=== PATIENT | female | born 1985 | race Caucasian/White ===

== ENCOUNTER 2024-10-18 06:02 | Inpatient (IN) | payer BC, SELFPAY ==
[2024-10-18] VITALS (23 sets, daily range): BP systolic 112–143; BP diastolic 59–85; PULSE 44–156; RESP 16–18; TEMP 36.6–36.9; O2SAT 82–98; BMI 26.6
--- OUTSIDE RECORDS SUMMARY | 2024-10-18 06:07 | XMS_ITS | Clinical Summary ---
Author Organization [employer] [facility] [employer] [facility] Address [place], [place] [address] Care Team Providers Care Patient Scheduling Manager Name Role Phone Gaston Shipman MD Unavailable Unavailable Tong Rosenthal DO Primary Care Provider [phone] Allergies No known active allergies Medications albuterol HFA (PRO-AIR; VENTOLIN; PROVENTIL) 90 mcg/actuation inhalerIndicatio ns:Cough, unspecified type Inhale 1-2 Puffs by mouth every 4 hours if needed for Shortness Of Breath or Wheezing. 1 Each 2 2 Active fluticasone (50 mcg per actuation) nasal solution (FLONASE)Indicat ions:Dysfunction of right eustachian tube INHALE 2 SPRAYS TO BOTH NOSTRILS ONCE DAILY 48 mL 2 2 Active 21/iron fu/folic acid ( COMPLETE ORAL) Take by mouth. Active valACYclovir (Valtrex) 500 mg tabletIndication s:Genital herpes simplex, unspecified site Take 1 Tablet (500 mg) by mouth once daily. 90 Tablet 3 4 Active Breast Pump PurchaseIndicati ons:Breastfeedin g () Electric breast pump for home use. ALEXANDRA 10/25/24. Reason for need: . Length of need: 99 months (lifetime use) 1 Each 4 Active ferrous sulfate 325 mg delayed release tabletIndication s:Anemia during Take 1 Tablet (325 mg) by mouth once daily with a meal. 90 Tablet 3 4 Active Active Problems Problem Noted Date Diagnosed Date Advanced maternal age in multigravida, third tri mester 09/14/2024 Bilobate placenta, third trimester 08/03/2024 Elderly multigravida in second trimester 024 History of delivery, currently in second trimester 06/01/2024 History of loop electrosurgi ninfa excision procedure (LEEP) of cervix 06/01/2024 Post-viral reactive airway disease 04/12/2024 [facility] Supervision of high-risk 4 Overview (09/08/2024): Tamra Glynn : 1985 MPP ULTRASOUND/TESTING PATIENT MPP CONSULT ON 06/02/24 Support person name: Bill REFERRING PROVIDER/CLINIC LOCATION/FAX #: Tong Rosenthal DO , Primary provider approves scheduling of recommended ultrasounds/testing: Yes ULTRASOUND TYPE: Growth REASON FOR VISIT: AMA (39 at [facility]), history delivery NEXT VISIT ALERTS: Final ALEXANDRA by LMP LMP Date: Patient's last menstrual period was 01/19/2024. ALEXANDRA: 10/25/24 Early US: Date: 03/15/24 GA: 8w3d ALEXANDRA: 10/22/24 PrePregnancy Weight: 140 Height: 66.5 BMI: 22.3 PLANS & FUTURE APPOINTMENTS: ULTRASOUND/GROWTH PLAN: growth is recommended at 28 and 34 weeks - Growth: Next 09/14 TESTING PLAN: @ 32wks - Testing: Through DELIVERY PLAN: 39wks - Scheduled delivery: - Preferred delivery location: [place] PRIMARY DIAGNOSIS: 38 y.o. Estimated Date of Delivery: 10/25/24 : posterior succenturiate lobe. MATERNAL: 2017 35w5d 2015 Term ELMER (39 at del) 2011 LEEP HSV2 PREVIOUS ULTRASOUNDS: 09/14/24 34w1d 08/03/24 28w1d EFW 1365 grams, percentile: 75 06/02/24 19w2d EFW 315 grams, percentile: 71. ECHO: SPECIALISTS/CONSULTS: Include: Specialty MD Clinic Name Phone# [place] and ADDED TO PATIENT CARE TEAM No GENETICS: NIPT: low risk CARE COORDINATION: PERTINENT LABS: Blood type: B Rh Positive Antibody screen: Negative PERTINENT MEDS: Valtrex PROCEDURES: PLAN OF CARE: 08/03/24 per ML -Return to primary OB provider for continued care. -Follow up as scheduled at 34 weeks for growth (MPP) -Weekly surveillance to start at 32 weeks (Primary OB) -Delivery at 39 weeks unless indicated sooner. 03/17/2024 Overview (10/11/2024): Call [facility] first if presents in Labor. If unavailable then call provider information architect. Estimated Date of Delivery: 10/25/24 c/w dating US Patient's last menstrual period was 01/19/2024. Growth US at 34 weeks: EFW 2790 grams, percentile: 87. 08/03/24 growth US also noted New finding of suspected succenturiate lobe. Will needs to ensure complete delivery of the placenta. Vasa previa excluded today. History delivery in 2017 at 35 5/7 weeks RSV vaccine given 08/30/24 at 32wks GBS: Vaginal/Rectal OB Strep B PCR Date Value Ref Range Status 09/13/2024 Negative Final 28wk labs: GLUCOSE, GESTATIONAL SCREEN (50G)-140 CUTOFF Date Value Ref Range Status 08/05/2024 124 <140 mg/dL Final HEMOGLOBIN Date Value Ref Range Status 09/27/2024 11.2 (L) 11.7 - 15.5 g/dL Final T. PALLIDUM AB Date Value Ref Range Status 08/05/2024 NEGATIVE NEGATIVE Final Comment: No antibodies to T. pallidum (the agent causing syphilis) were detected in the specimen. This result, however, does not exclude very recent T. pallidum infection; testing of a second specimen, collected 2-4 weeks after this specimen, is recommended if the index of suspicion for recent infection is high. Last Tdap: 08/16/24 Last Flu vaccine: 07/19/24 OB Labs: ABORH Date Value Ref Range Status 03/15/2024 B Rh Positive Final ANTIBODY SCREEN Date Value Ref Range Status 03/15/2024 Negative Negative Final TREPONEMA PALLIDUM Date Value Ref Range Status 03/15/2024 Non-Reactive Non-Reactive Final RUBELLA IGG ANTIBODY Date Value Ref Range Status 03/15/2024 4.21 >=1.00 Index Final INTERPRETATION Date Value Ref Range Status 03/15/2024 Positive Final Comment: Presence of detectable IgG antibodies. A positive result generally indicates exposure to the virus or previous vaccination, but is not an indication of active infection or stage of disease. HBSAG Date Value Ref Range Status 03/15/2024 Nonreactive Nonreactive Final HEPATITIS C ANTIBODY Date Value Ref Range Status 10/19/2023 Non-Reactive Non-Reactive Final Comment: Please note, per www.CDC.gov: If a patient is known to be at high risk of HCV infection, or is symptomatic, and the physician's suspicion of HCV infection is high, HCV RNA testing is often employed and is of diagnostic value, even after an initial negative anti-HCV test result. HIV-1/HIV-2 SCREEN Date Value Ref Range Status 03/15/2024 Non-Reactive Non-Reactive Final Comment: HIV-1 p24 and HIV-1/HIV-2 Ab Not Detected. HEMOGLOBIN Date Value Ref Range Status 03/15/2024 12.4 12.0 - 16.0 g/dL Final CHLAMYDIA PROBE Date Value Ref Range Status 03/15/2024 Negative Final N GONORRHOEAE PROBE Date Value Ref Range Status 03/15/2024 Negative Final No Known Allergies OB History Para Term AB Living 4 2 1 1 1 2 SAB IAB Ectopic Multiple Live Births 1 0 0 0 2 # Outcome Date GA Lbr Richard/2nd Weight Sex Delivery Anes PTL Lv 4 Current 3 SAB 11/10/23 9w6d 2 01/25/17 35w5d M Vag Y PANCHO 1 Term 02/18/15 39w5d M Vag Y PANCHO Name: Pj Past Medical History: . Date CAMILLA III (cervical intraepithelial neoplasia grade III) with severe dysplasia 06/30/201101/2022 NIL/HPV negative Plan Pap/HPV due 01/2025 Genital herpes Supervision of normal 07/13/2014 Past Surgical History: . Laterality Date BUNIONECTOMY right COLPOSCOPY 11/2010 CAMILLA 1 COLPOSCOPY 06/2011 CAMILLA 2-3 LAP CHOLECYSTECTOMY 03/26/15 LEEP PROCEDURE 08/2011 CAMILLA 2, positive margin TONSILLECTOMY and adnoids WISDOM TEETH EXTRACTION Problems (from 03/15/24 to present) No problems associated with this episode. Sussy Smith RN ....03/17/2024 2:15 PM Myopia of both eyes 02/03/2022 CAMILLA III (cervical intraepith elial neoplasia grade III) with severe dysplasia 06/30/2011 Overview (03/13/2022): 11/12/2010 LSIL 11/18/2010 COLP: CAMILLA 1 05/30/2011 LSIL 06/30/2011 COLP: CAMILLA 2-3 08/18/2011 LEEP: CAMILLA 2 02/27/2012 NIL 09/10/2012 NIL 03/04/2013 NIL 08/26/2013 NIL 06/26/2014 NIL 07/06/2015 NIL/HPV negative 07/15/2018 NIL/HPV negative 02/03/2022 NIL/HPV negative Plan: Pap/HPV due 01/2025 AS[facility]P 2018 Recommendations for History of CAMILLA 2 - CAMILLA 3: Pap and HPV (cotesting) at 6 months, then annually x 3. If all negative, continued surveillance at 3 year intervals is recommended for at least 25 years, even if beyond age 65. Estimated Date of Delivery Comme nts Yes 10/25/2024 Based on last me nstrual period of 01/19/2024 Resolved Problems Problem Noted Date Diagnosed Date Resolved Date care, subsequent 10/19/2023 03/17/2024 Overview (03/17/2024): LMP 09/02/23 ALEXANDRA by LMP 06/08/24 US on 10/19/23 shows 6wk gestation sac (6w5d by LMP) History delivery last in 2017 at 35 5/7 weeks. That was complicated by shortened cervix found at 31 6/7 weeks at 1.3-1.8cm. Was given steroids and went on to deliver at 35 5/7. Plan cervical length US 16-24wks. GBS- 28wk labs- Last Tdap- 2016 Last Flu vaccine- 2021 OB Labs: ABORH Date Value Ref Range Status 10/19/2023 B Rh Positive Final ANTIBODY SCREEN Date Value Ref Range Status 10/19/2023 Negative Negative Final TREPONEMA PALLIDUM Date Value Ref Range Status 10/19/2023 Non-Reactive Non-Reactive Final RUBELLA IGG ANTIBODY Date Value Ref Range Status 10/19/2023 6.12 >=1.00 Index Final INTERPRETATION Date Value Ref Range Status 10/19/2023 Positive Final Comment: Presence of detectable IgG antibodies. A positive result generally indicates exposure to the virus or previous vaccination, but is not an indication of active infection or stage of disease. HBSAG Date Value Ref Range Status 10/19/2023 Nonreactive Nonreactive Final HEPATITIS C ANTIBODY Date Value Ref Range Status 10/19/2023 Non-Reactive Non-Reactive Final Comment: Please note, per www.CDC.gov: If a patient is known to be at high risk of HCV infection, or is symptomatic, and the physician's suspicion of HCV infection is high, HCV RNA testing is often employed and is of diagnostic value, even after an initial negative anti-HCV test result. HIV-1/HIV-2 SCREEN Date Value Ref Range Status 10/19/2023 Non-Reactive Non-Reactive Final Comment: HIV-1 p24 and HIV-1/HIV-2 Ab Not Detected. HEMOGLOBIN Date Value Ref Range Status 10/19/2023 13.6 12.0 - 16.0 g/dL Final CHLAMYDIA PROBE Date Value Ref Range Status 10/19/2023 Negative Final N GONORRHOEAE PROBE Date Value Ref Range Status 10/19/2023 Negative Final No Known Allergies OB History Para Term AB Living 3 2 1 1 0 2 SAB IAB Ectopic Multiple Live Births 0 0 0 0 2 # Outcome Date GA Lbr Richard/2nd Weight Sex Delivery Anes PTL Lv 3 Current 2 01/25/17 35w5d M Vag Y PANCHO 1 Term 02/18/15 39w5d M Vag Y PANCHO Name: Pj Past Medical History: . Date CAMILLA III (cervical intraepithelial neoplasia grade III) with severe dysplasia 06/30/201101/2022 NIL/HPV negative Plan Pap/HPV due 01/2025 Genital herpes Supervision of normal 07/13/2014 Past Surgical History: . Laterality Date BUNIONECTOMY right COLPOSCOPY 11/2010 CAMILLA 1 COLPOSCOPY 06/2011 CAMILLA 2-3 LAP CHOLECYSTECTOMY 03/26/15 LEEP PROCEDURE 08/2011 CAMILLA 2, positive margin TONSILLECTOMY and adnoids WISDOM TEETH EXTRACTION Problems (from 10/19/23 to present) No problems associated with this episode. Sussy Smith RN ....10/20/2023 9:53 AM Arrhythmia 07/04/2016 06/01/2024 Overview (07/04/2016): Atrial ectopic focus causing presyncopal symptoms at times. Saw cardiology. Had echocardiogram, holter and cardiac MR. Echocardiogram 05/09/15:. This study demonstrates normal left ventricular size, normal wall thickness, low normal global systolic function, calculated ejection fraction of 53%. Mildly enlarged left atrium. Holter monitor: sinus rhythm with sinus arrhythmia, intermittent sinus tachycardia, frequent ectopic atrial premature beats often aberrantly conducted and frequent episodes of ectopic atrial rhythm and tachycardia. The maximum run length was 132 beats at a rate of 118 beats per minute. The patient's diary noted dizziness and palpitations during periods of ectopic atrial tachycardia and PACs. Cardiac MR normal Herpes genitalis 12/11/2014 06/01/2024 Supervision of normal 07/13/2014 03/20/2015 Overview (02/13/2015): Dr Naidu care with Dr Rosenthal covering while Dr Naidu gone. 1) GBS positive at [facility] 2) On valacyclovir prophylaxis 3) Wants pump if breastfeeds, does not want to breastfeed directly. Encounters Date Type Department Care Team Description 10/10/2024 8:20 AM MUSICIAN INSTRUMENTAL OB Encounter [facility] [place] [address] Tong Rosenthal DO Care (37 wks 6 days) 10/10/2024 7:30 AM MUSICIAN INSTRUMENTAL Ancillary Procedure [facility] [place] [address] 10/10/2024 Travel 10/04/2024 8:20 AM MUSICIAN INSTRUMENTAL OB Encounter [facility] [place] [address] Tong Rosenthal DO Care (37 wks) 10/04/2024 7:30 AM MUSICIAN INSTRUMENTAL Ancillary Procedure [facility] [place] [address] 10/04/2024 Travel 09/27/2024 8:20 AM MUSICIAN INSTRUMENTAL OB Encounter [facility] [address] [place] [address] Tong Rosenthal DO Care (36 wks) 09/27/2024 7:30 AM MUSICIAN INSTRUMENTAL Ancillary Procedure [facility] [place] [address] 09/27/2024 Travel 09/20/2024 7:30 AM MUSICIAN INSTRUMENTAL Ancillary Procedure [facility] [place] [address] 09/20/2024 Travel 09/14/2024 1:41 PM MUSICIAN INSTRUMENTAL - 09/14/2024 11:59 PM MUSICIAN INSTRUMENTAL Hospital Encounter [facility] [address] [place] [address] Advanced maternal age in multigravida, third trimester (Primary Dx); Supervision of high risk in third trimester; Elderly multigravida in second trimester; History of delivery, currently in second trimester; History of loop electrosurgical excision procedure (LEEP) of cervix 09/13/2024 3:35 PM MUSICIAN INSTRUMENTAL OB Encounter [facility] [place] [address] Tong Rosenthal DO Care (34 weeks) 09/13/2024 Travel 09/06/2024 7:30 AM CDT Ancillary Procedure [facility] [place] [address] [address] 09/06/2024 Travel 08/30/2024 8:20 AM CDT OB Encounter [facility] [place] [address] [address] Tong Rosenthal DO Care (32 wks) 08/30/2024 7:30 AM CDT Ancillary Procedure [facility] [place] [address] [address] 08/30/2024 Travel 08/16/2024 7:30 AM CDT OB Encounter [facility] [place] [address] [address] [address] Tong Rosenthal DO Care (30 wks ) 08/16/2024 Travel 08/06/2024 Orders Only [facility] [place] [address] [address] [address] Tong Rosenthal, <No scans attached> 08/05/2024 9:10 AM CDT OB Encounter [facility] [address] [place] [address] Tong Rosenthal DO Care (28 wks 3 days) 08/05/2024 Orders Only [facility] [address] [place] [address] [address] Tong Rosenthal, <No scans attached> 08/05/2024 Travel 08/03/2024 2:22 PM CDT - 08/03/2024 11:59 PM CDT Hospital Encounter [facility] [address] [address] Tripp Ann MD History of delivery, currently in second trimester (Primary Dx); Supervision of high risk in third trimester; Elderly multigravida in second trimester; History of loop electrosurgical excision procedure (LEEP) of cervix; Bilobate placenta, third trimester 08/03/2024 Travel 07/19/2024 3:35 PM CDT OB Encounter [facility] [address] [place] [address] [address] Tong Rosenthal DO Care (26 weeks); Immunization/Injection 07/19/2024 Travel from Last 3 Months Immunizations Name Administration Dates Next Due COVID-19 vaccine (Moderna 100mcg/0.5mL) PF, MDV 03/08/2021,02/08/2021 DTP 12/29/2005 Hepatitis B (Adult) 07/19/2001,03/02/2001,2000 Human Papilloma Virus Vaccine 07/18/2008, 008,10/25/2007 INFLUENZA, IIV3 PF (AGE >= 6 MO) 07/19/2024 Influenza, IIV3 (Age >=3 years) 09/22/2003 Influenza, IIV4 07/20/2023,,08/26/2021,2019,09/08/2019,08/10/2018,08/19/2017,1 ,08/09/2015 Tdap 08/16/2024, 7,12/11/2014,2010 Tuberculin Skin Test, Unspecified 07/02/2009,,01/16/2003 Family History Medical History Relation Name Comments Good Health Father Cancer-breast Maternal Grandmother Unknown Mother Relation Name Status Comments Father Maternal Grandmother Mother Social History Tobacco Use Types Packs/Day Years Used Date Smoking Tobacco: Never Smokeless Tobacco: Never Tobacco Cessation:Counseling Given: Yes Alcohol Use Standard Drinks/Week Comments Not Currently 0 (1 standard drink = 0.6 oz pur e alcohol) PHQ-2 Answer Date Recorded PHQ-2 TOTAL SCORE 0 10/19/2023 Social Connections Answer Date Recorded Do you often feel lonely or isolated from those around you? 0 11/16/2023 Alcohol Use Answer Date Recorded How often do you have a drink containing alcohol ? 2 02/03/2022 How many drinks containing a lcohol do you have on a typical day when you are drinking? 0 02/03/2022 How often do you have five or more drinks on one occasion? 0 02/03/2022 Financial Resource Strain Answer Date R ecorded Difficulty of Paying Living Expenses 3 11/16/2023 Difficulty of Paying Living Expenses Not on file 11/16/2023 Food Insecurity Answer Date Recorded Do you worry your food will run out before you are able to buy more? 1 11/16/2023 Transportation Needs Answer Date Record ed Does lack of transportation keep you from medica l appointments? 1 11/16/2023 Does lack of transportation keep you from work, meetings or getting things that you need? 1 11/16/2023 Housing Stability Answer Date Recorded What is your housing situation today? 1 11/16/2023 Estimated Date of Delivery Comme nts Yes 10/25/2024 Based on last me nstrual period of 01/19/2024 Sex and Gender Information Value Date Recorded Sex Assigned at Not on file Legal Sex Female 7:34 AM MUSICIAN INSTRUMENTAL Gender Identity Not on file Sexual Orientation Not on file Obstetrics History Para Term AB IAB SAB Ectopic Multiple Livin g Live Births 4 2 1 1 1 0 1 0 0 2 2 Date Outcome GA Total Labor Labor/2nd/3rd Weight Sex Type Anes PTL [place] A1 A5 Name Clin 02/18 Term 39w 5d M Vag Y Living Pj 01/25 35w 5d M Vag Y Living 11/10 SAB 9w6 d Current Summary Episode Dates Number of Fetuses Estimated Date of Delivery 03/15/2024 - Present (10/18/2024) 1 10/25/2024 (set by Rubia Kyle on 03/15/2024 based on Last Menstrual Period on 01/19/2024) Dating Summary Based On ALEXANDRA GA Diff Last Menstrual Period on 01/19/2024 10/25/2024 Working Vitals Date GA Fund Present FHR Mvmt BP Weight Edema Alb Glu Ket Dil/ Eff/Sta 4 19w2d Inpatient data not displayed here. See encounter summary. 4 28w1d Inpatient data not displayed here. See encounter summary. 4 34w1d Inpatient data not displayed here. See encounter summary. Notes Progress Notes - OB Encounte r - 10/10/2024 - GA:37w6d 10/10/2024 - 37wd - Tong Rosenthal DO Patient here for routine visit at 37 6/7. Contractions randomly. Good FM. No abdominal pain/vaginal bleeding. Headache yesterday, went to bed and resolved. No headache today. Discussed if headache not go away with water, tylenol, need call center and reviewed reasons why. BPP today 06/16 Growth US at 34wks was EFW 87% Cervix today 3/80/-2, cephalic Typical remaining course reviewed. Warning signs/labor signs reviewed. SHe is scheduled for induction on Oct 18Thursday morning 6am. Plan pitocin and discussed. Followup for induction, sooner if needed [employer]AN [employer] Progress Notes - OB Encounte r - 10/04/2024 - GA:37w0d 10/04/2024 - 37w0d - Tong Rosenthal DO Patient here for routine visit at 37 weeks. BPP today 06/16. Continues to get random cramping/ctxs. Backache. No LOF. No bleeding. No headaches or vision changes. Cervix today 70/-2, cephalic Typical remaining course reviewed. Warning signs/labor signs reviewed. Followup in 1week, sooner if needed CIAN INSTRUMENTAL Progress Notes - OB Encounte r - 09/27/2024 - GA:36w0d 09/27/2024 - 36w0d - Tong Rosenthal DO Patient feeling well at 36wks. Contractions irregularly. +FM No abdominal pain/contractions/vaginal bleeding. No headaches or vision changes. Getting BPP's, 06/16 today. Typical remaining course reviewed. Warning signs/labor signs reviewed. GBS was negative Growth US at 34wks was EFW 87% Planning induction at 39wks if not delivered due to AMA. I called and scheduled induction for patient on Oct 18Thursday morning 6am. Had RSV vaccine at 32wks Followup in 1week, sooner if needed [facility] Progress Notes - Hospital En counter - 09/14/2024 - GA:34w1d 09/14/2024 - 34w1d - Rashaad Childers MD MPP Ultrasound Visit Your patient had an ultrasound with [facility] on 09/14/2024. The report is ready and can be found in the Results review section of the [facility] chart. Recommendations regarding further care are listed below. The Impression from the report is below. Thank you for sending her to see us. Rashaad Tavares MD .................... 09/14/2024 3:41 PM INDICATIONS Maternal age of 39 at delivery Low risk NIPS Intrauterine at 34w 1d. presentation is Cephalic. EFW 2790 grams, percentile: 87. Deepest Vertical Pocket of amniotic fluid: 6.92 cm. No major anomalies identified on limited survey. Appropriate symmetric growth. Placental location: Anterior, right lateral. There is no evidence of placenta previa. The transabdominal cervical length is not seen BPP 08/18 RECOMMENDATIONS Return to primary OB provider for continued care. Continue weekly BPP Deliver at 39 weeks COMMENT The patient was seen by the Perinatologist today. The previous ultrasound and the records were reviewed. The results of today's ultrasound were communicated to the patient. Discussed. All questions answered. Rashaad Tavares MD .................... 09/14/2024 3:42 PM New government regulations related to the [employer] act require that this note be released to the patient immediately, sometimes before the referring provider has been contacted. A portion of the information was presented verbally to the patient. The remainder is submitted as background for the referring provider, to be discussed as needed. Medical Decision Making Low Complexity [address] Limited Diagnoses including AMA with maternal age of 39 at delivery Limited Data including review of prior ultrasound and review of prior external notes Minimal risk of morbidity or mortality to the fetus from additional testing. CIAN INSTRUMENTAL 09/14/2024 - 34w1d - Lexie Mayo RN [facility] Testing (BPP/NST) visit [facility] at [facility] for testing @ 34w1d gestation due to AMA. Patient admitted to the testing room. Placed on monitor for non stress test (NST) and uterine activity assessment as part of her Biophysical Profile. BPP to follow. Nursing interpretation of monitor strip: Reactive Non-Stress Test. Refer to the Assessment Flowsheet (#[id number]) for further testing results. She describes daily positive activity counts. activity counts instructions reviewed with patient. Stressed importance of reporting decreased movement. Review of Symptoms Vaginal bleeding: Denies Vaginal discharge: Denies Vaginal leaking of fluids: Denies Cramping / contractions: Denies Headache: Denies URQ pain: Denies Visual changes: Denies Patient questions/concerns Denies Current testing plan Surveillance BPP/NST (weekly) in Primary OB Clinic. Routine OB care with primary provider. Education is documented in patient education section. Patient states that all her questions were answered and understands she should call her primary OB clinic if she experiences any decreased movements, increased contractions (discomfort and frequency), vaginal bleeding, or leaking of fluid. RN time Face to Face 20 min Lexie Mayo RN .................... 09/14/2024 1:53 PM CIAN INSTRUMENTAL Progress Notes - OB Encounte r - 09/13/2024 - GA:34w0d 09/13/2024 - 34w0d - Tong Rosenthal DO Patient is here for visit. Getting couple contractions each day, nothing consistent. Noticing more crampy today but again nothing consistent. Not increasing. Noticing increased vaginal discharge. Had whole , just increased. Not think water broke. Lots vaginal pressure. No headaches or vision changes. +FM Has growth US and is to get BPP tomorrow Typical remaining course reviewed. Warning signs/labor signs reviewed. Due to history PTD, GBS done today. Planning induction at 39wks if not delivered due to AMA. I called and scheduled induction for patient on Oct 18Thursday morning 6am. Followup in 1week, sooner if needed [facility] [employer] Progress Notes - OB Encounte r - 08/30/2024 - GA:32w0d 08/30/2024 - 32w0d - Tong Rosenthal DO Patient feeling well at 32wks. Had BPP today due to AMA and was 6/8. Has felt good movement. Did not eat prior to BPP today. NST today reactive 140's, moderate variability, +accels, no decels. Occasional ctxs, nothing regular No abdominal pain/vaginal bleeding. No headaches or vision changes. Typical remaining course reviewed. Warning signs/labor signs reviewed. RSV vaccine today Plan check Hemoglobin at 36wks Continue testing weekly Followup in 2weeks, sooner if needed 08/30/2024 - 32w0d - Rubia Hicks MA Pre-Visit Planning Checklist Reason for visit OB Routine : Due for N/A Appointment Notes Appointment Notes or Patient-Entered Reason for Visit OB Future Visits Needed N/A Forms to be Completed N/A Anticipated Orders N/A Is Pre-Visit Planning Complete? Yes Rubia Carreno MA 08/29/2024,9:58 AM Progress Notes - OB Encounte r - 08/16/2024 - GA:30w0d 08/16/2024 - 30w0d - Tong Rosenthal DO Patient feeling well at 30wks. +FM. No concerns regarding abdominal pain/contractions/vaginal bleeding. Typical remaining course reviewed. Getting weekly testing starting 32wks, growth again at 34 weeks Anemia , check Hemoglobin at 36wks TdaP today Followup in 2weeks, sooner if needed Progress Notes - OB Encounte r - 08/05/2024 - GA:28w3d 08/05/2024 - w3d - Tong Rosenthal DO Patient feeling well at 28 3/7. GTT/labs today. Plans TdaP next time. Thursday had contractions about every 10min, drank water, laid down and within an hour resolved. Discussed s/s labor and went to call and go to center. No contractions since then. No LOF. +FM Typical remaining course reviewed. Warning signs/labor signs reviewed. Saw perinatology recently with 28wk US and RECOMMENDATIONS: -Return to primary OB provider for continued care. -Follow up as scheduled at 34 weeks for growth (MPP) -Weekly surveillance to start at 32 weeks (Primary OB) -Delivery at 39 weeks unless indicated sooner. New finding of suspected succenturiate lobe. Will needs to ensure complete delivery of the placenta She has growth US scheduled for 34wks and BPP's starting at 32 weeks due to AMA >40. Plan induction at 39wks for AMA Followup in 2weeks, sooner if needed Progress Notes - OB Encounte r - 07/19/2024 - GA:26w0d 07/19/2024 - 26w0d - Tong Rosenthal DO Patient feeling well at 26wks. No concerns. +FM No abdominal pain/contractions/vaginal bleeding. No headaches or vision changes. Typical remaining course reviewed. Warning signs/labor signs reviewed. She has growth US scheduled for 28 and 34wks and BPP's starting at 32 weeks due to AMA >40. Flu shot today Plan induction at 39wks for AMA Followup in 2weeks with GTT/TdaP, sooner if needed Progress Notes - OB Encounte r - 06/21/2024 - GA:22w0d 06/21/2024 - 22w0d - Tong Rosenthal DO Patient feeling well at 22wks. Had level2 US 06/02/24. -Begin weekly testing at 32 weeks (age >/= 40): scheduled tentatively with [facility] (orders completed) but can do with primary OB providers. -A follow up ultrasound for growth is recommended at 28 and 34 weeks scheduled with MPP She will get growth US's with MPP and BPP's otherwise with us locally. BPP's ordered, discussed with her verifying the Growth US at 34wks includes BPP with MPP Gets random [place] kahn. No abdominal pain/contractions/vaginal bleeding. No headaches or vision changes. Typical remaining course reviewed. Warning signs/labor signs reviewed. Followup in 4weeks, sooner if needed Progress Notes - OB Encounte r - 05/25/2024 - GA:18w1d 05/25/2024 - 18w1d - Stortz, Tong Kathy, DO Patient feeling well at 18wks. No concerns except [place]. Sat on boat Thursday night () thought spot was dry. When stood up pants were wet, so was underwear. Black pants so no color noted. Underwear was 'damp' and pants were more wet. No cramping or pain. No further leaking. It did rain night before onto boat. Has cervical length US today after apt due to history labor. Discussed. +FM No abdominal pain/contractions/vaginal bleeding. No headaches or vision changes. Typical remaining course reviewed. Warning signs/labor signs reviewed. Has level 2 US next week. Has cervical length US's q2wks until 24 weeks. Followup in 4weeks, sooner if needed Progress Notes - OB Encounte r - 04/27/2024 - GA:14w1d 04/27/2024 - 14w1d - Tong Rosenthal DO Patient feeling well at 14wks. Might feel random flutter. No concerns. No abdominal pain/contractions/vaginal bleeding. Has q2wk cervical length US's starting 16wks. Typical remaining course reviewed. Warning signs/labor signs reviewed. Followup in 4weeks, sooner if needed Progress Notes - OB Encounte r - 04/12/2024 - GA:12w0d 04/12/2024 - 12w0d - Tong Rosenthal DO Patient here for visit at 12wks. Still feeling nausous/bloating. No vomiting. No contractions/vaginal bleeding. No headaches or vision changes. Typical remaining course reviewed. Followup in 2weeks, sooner if needed Progress Notes - OB Encounte r - 03/31/2024 - GA:10w2d 03/31/2024 - 10w2d - Tong Rosenthal DO Patient feeling well at 10 2/7wks. No concerns. little nausea at times. No abdominal pain/contractions/vaginal bleeding. Unable doppler FHT today. Bedside handheld US used and able to visualize good heartbeat. Typical remaining course reviewed. Warning signs/labor signs reviewed. With history sab, plan followup in 2weeks, sooner if needed Progress Notes - OB Encounte r - 03/15/2024 - GA:8w0d 03/15/2024 - 8w0d - Tong Rosenthal DO FIRST OB VISIT HPI: Tamra Glynn is a 38 y.o. female at 8w0d with carrera intrauterine here today for a initial OB exam. She is here with self Estimated due date is Estimated Date of Delivery: 10/25/24 based on LMP. Prior sab and took cytotec 11/03/23. Had HCG level = 1 on 12/29/23. Last prior to sab was in 2017: History delivery last in 2017 at 35 5/7 weeks. That was complicated by shortened cervix found at 31 6/7 weeks at 1.3-1.8cm. Was given steroids and went on to deliver at 35 5/7. Nausea/Vomiting: occasional nasuea, no vomiting Breast tenderness: yes Fatigue: yes Bleeding: no Taking vitamins: yes Options of sequential screen, cell-free DNA testing, amniocentesis were discussed. Patient is interested in pursuing testing. AMA: yes Previous : no MENSTRUAL HISTORY LMP:Patient's last menstrual period was 01/19/24. Had sab beginning of Nov, stopped bleeding couple weeks. Then 2 days bleeding end of Nov, nothing in Dec. Then January menses was LMP Taking PNV whole time. Control at the time of conception: none SPOT CHECKER HX: History CIN3 with LEEP. Leep in 2010, normal Pap smear since. Most recent 2021 Pap smear and HPV negative, repeat recommend 3 years History herpes genitalis, takes valtrex. Not had outbreak for years but does not want to get outbreak. Takes valacyclovir off and on lately but no outbreaks OB History Para Term AB Living 4 2 1 1 1 2 SAB IAB Ectopic Multiple Live Births 1 0 0 0 2 # Outcome Date GA Lbr Richard/2nd Weight Sex Delivery Anes PTL Lv 4 Current 3 SAB 11/10/23 9w6d 2 01/25/17 35w5d M Vag Y PANCHO 1 Term 02/18/15 39w5d M Vag Y PANCHO Past Medical History: . Date CAMILLA III (cervical intraepithelial neoplasia grade III) with severe dysplasia 06/30/201101/2022 NIL/HPV negative Plan Pap/HPV due 01/2025 Genital herpes Supervision of normal 07/13/2014 No history MRSA or resistant infections Past Surgical History: . Laterality Date BUNIONECTOMY right COLPOSCOPY 11/2010 CAMILLA 1 COLPOSCOPY 06/2011 CAMILLA 2-3 LAP CHOLECYSTECTOMY 03/26/15 LEEP PROCEDURE 08/2011 CAMILLA 2, positive margin TONSILLECTOMY and adnoids WISDOM TEETH EXTRACTION Family History Problem Relation Age of Onset Unknown Mother Good Health Father Cancer-breast Maternal Grandmother 75 Social History Tobacco Use Smoking status: Never Smokeless tobacco: Never Substance Use Topics Alcohol use: Not Currently Current Outpatient Medications Medication Sig albuterol HFA (PRO-AIR; VENTOLIN; PROVENTIL) 90 mcg/actuation inhaler Inhale 1-2 Puffs by mouth every 4 hours if needed for Shortness Of Breath or Wheezing. fluticasone (50 mcg per actuation) nasal solution (FLONASE) INHALE 2 SPRAYS TO BOTH NOSTRILS ONCE DAILY 21/iron fu/folic acid ( COMPLETE ORAL) Take by mouth. valACYclovir (Valtrex) 500 mg tablet Take 1 Tablet (500 mg) by mouth once daily. No current facility-administered medications for this visit. Medications have been reviewed by me and are current to the best of my knowledge and ability. ALLERGIES Patient has no known allergies. MENTAL HEALTH HISTORY History of psychiatric diagnosis: None Current mental health provider: not applicable Currently taking any psychiatric medications? Not Applicable REVIEW OF SYSTEMS Comprehensive ROS complete and negative other than noted in HPI and on OB Questionnaire. PHYSICAL EXAM BP 121/77 (Cuff Site: Right Arm, Position: Sitting, Cuff Size: Adult Regular) Pulse (!) 101 Wt 63.5 kg (140 lb) LMP 01/19/2024 SpO2 99% BMI 22.26 kg/m General: Pleasant female in no acute distress, alert and appropriate HEENT: Conjunctiva clear, nares patent, TMs normal, mucous memory is moist Neck: No lymphadenopathy or thyromegaly Heart: Regular rate and rhythm Lungs: Clear tissue bilaterally Abdomen: Nontender. deferred Extremities: No edema Skin: No concerning lesions Psych: normal affect Ultrasound #1: today after this apt ALEXANDRA: ALEXANDRA at 8wks by LMP ASSESSMENT/PLAN 38yo at 8 by LMP here for initial visit. History short cervix prior at 31 6/7 weeks resulting in delivery at 35 5/7 weeks. AMA at 38yo History 1st trimester sab 1. Discussed orientation,general information,lifestyle,nutrition,exercise,warning signs,resources,lab testing,risk screening. Questions answered. 2. US later today 3. AMA discussed. No candidate for aspirin as age only RF. Recommend level 2 US and discussed likely induction 39-40wks if not delivered. 4. History PTD with prior shortened cervix: Recommend cervical length US every 2 weeks started 16wks through 24 weeks. If cervix <30mm, may need closer monitoring or cerclage. 5. Briefly discussed vaginal progesterone supplementation and controversy. Based on history PTD, ACOG and UTD recs against. Society MFM recs shared decision making. If shortened cervix current <25mm ACOG and UTD recommend but also reasonable to not do progesterone. Cerclage also option, UTD agrees. 6. labs pending. 7. Patient prefers radha and order placed for after 11wks 8. Followup in 4 weeks, sooner if needed. ASPIRIN CANDIDATE EVALUATION One or more of the following: Previous with preeclampsia, especially early onset and with and adverse outcome. Multifetal gestation Chronic hypertension Type 1 or 2 diabetes Chronic kidney disease Autoimmune disease (antiphospholipid syndrome, systemic lupus erythematosus) Two or more of the following: Nulliparity Obesity (body mass index > 30 kg/m2) Family history of preeclampsia in mother or sister Age greater than or equal to 35 years Sociodemographic characteristics (, low socioeconomic level) Personal risk factors (eg, history of low weight or small for gestational age, previous adverse outcome, > 10 year interval) Last Filed Vital Signs Vital Sign Reading Time Taken Comments Blood Pressure 128/77 10/10/2024 8:23 AM MUSICIAN INSTRUMENTAL Pulse 93 10/10/2024 8:23 AM MUSICIAN INSTRUMENTAL Temperature 37.6 C (99.7 F) 08/23/2019 12:15 PM CDT Respiratory Rate 18 08/23/2019 12:15 PM CDT Oxygen Saturation 100% 10/10/2024 8:23 AM MUSICIAN INSTRUMENTAL Inhaled Oxygen Concentration - - Weight 73.9 kg (163 lb) 10/10/2024 8:23 AM MUSICIAN INSTRUMENTAL Height 168.9 cm (5' 6.5) 02/03/2022 8:32 AM CDT Body Mass Index 25.91 02/03/2022 8:32 AM CDT Plan of Treatment Health Maintenance Due Date Last Done Comments BMI (ht and wt on same day) for age 18+ 02/03/2023 02/03/2022, 02/16/2019, 07/15/2018, Additional history exists COVID-19 vaccine series ( season) 2024 03/08/2021, 02/08/2021 Depression screening for age 12+ 10/19/2024 10/19/2023, 02/03/2022, 02/03/2022, Additional history exists Pap test for age 21-65 02/03/2025 2, 02/03/2022, 07/15/2018, Additional history exists Tetanus booster 08/16/2034 08/16/2024, 07/2017, 12/11/2014, Additional history exists Hepatitis C screening for age 18-79 Completed 10/19/2023 HIV for age 15-65 Completed 03/15/2024, , 07/03/2016, Additional history exists Influenza for age 9-49 Completed 4, 07/20/2023, 09/16/2022, Additional history exists Tdap Completed 08/16/2024, 07/2017, 12/11/2014, Additional history exists Pneumococcal series for age 6-64 Aged Out No longer eligible based on patient's age to complete this topic RSV vaccine for adults or (No Doses Required) Completed Procedures Procedure Name Priority Date/Time Associated Diagnosis Comments US OB BIOPHYSICAL PROFILE SINGLE WO NST Routine 10/10/2024 8:03 AM MUSICIAN INSTRUMENTAL AMA (advanced maternal age) multigravida 35+, third trimester US OB BIOPHYSICAL PROFILE SINGLE WO NST Routine 10/04/2024 8:03 AM MUSICIAN INSTRUMENTAL AMA (advanced maternal age) multigravida 35+, third trimester HEMOGLOBIN Routine 09/27/2024 7:59 AM MUSICIAN INSTRUMENTAL Anemia during US OB BIOPHYSICAL PROFILE SINGLE WO NST Routine 09/27/2024 7:56 AM MUSICIAN INSTRUMENTAL AMA (advanced maternal age) multigravida 35+, third trimester US OB BIOPHYSICAL PROFILE SINGLE WO NST Routine 09/20/2024 7:55 AM MUSICIAN INSTRUMENTAL AMA (advanced maternal age) multigravida 35+, third trimester US OB FOLLOW UP ANY TRI SINGLE TA Routine 09/14/2024 2:51 PM MUSICIAN INSTRUMENTAL Elderly multigravida in second trimester History of delivery, currently in second trimester History of loop electrosurgical excision procedure (LEEP) of cervix VAGINAL/RECTAL OB STREP PCR Routine 09/13/2024 4:37 PM MUSICIAN INSTRUMENTAL care in third trimester US OB BIOPHYSICAL PROFILE SINGLE WO NST Routine 09/06/2024 8:04 AM CDT AMA (advanced maternal age) multigravida 35+, third trimester US OB BIOPHYSICAL PROFILE SINGLE WO NST Routine 08/30/2024 8:10 AM CDT AMA (advanced maternal age) multigravida 35+, third trimester TREPONEMA PALLIDUM Routine 08/05/2024 9: 59 AM CDT care in third trimester HEMOGLOBIN Routine 08/05/2024 9:59 AM CDT care in third trimester GLUCOSE TOLERANCE, GESTATIONAL SCREEN 1H Routine 08/05/2024 9:59 AM CDT care in third trimester US OB FOLLOW UP ANY TRI SINGLE TA Routine 08/03/2024 3:11 PM CDT Elderly multigravida in second trimester History of delivery, currently in second trimester History of loop electrosurgical excision procedure (LEEP) of cervix ANTI HIV 1/2 Routine 03/15/2024 2:58 PM CDT care in first trimester ANTI HCV Routine 10/19/2023 9:52 AM MUSICIAN INSTRUMENTAL care in first trimester HPV HIGH RISK Routine 02/03/2022 9:11 AM CDT Cervical cancer screening from Last 3 Months or Most Recently Relevant to Health Maintenance Results * US OB BIOPHYSICAL PROFILE SINGLE WO NST (10/10/2024 8:03 AM MUSICIAN INSTRUMENTAL) Only the most recent of6 resultswithin the time period is included. Anatomical Region Laterality Modality Ultrasound 10/10/2024 12:5 4 PM MUSICIAN INSTRUMENTAL Impressions 10/10/2024 12:54 PM MUSICIAN INSTRUMENTAL Normal biophysical profile score of 8/8. Dictated by Mike Briones MD @ 10/10/2024 12:54:08 PM (Electronically Signed) Narrative 10/10/2024 12:54 PM MUSICIAN INSTRUMENTAL For Patients: As a result of the Century Cures Act, medical imaging exams and procedure reports are released immediately into your electronic medical record. You may view this report before your referring provider. If you have questions, please contact your health care provider. INDICATION: 39 year-old female. Advanced maternal age. Evaluate well-being. COMPARISON: October 04, 2024. TECHNIQUE: Real-time richard scale imaging of the fetus was performed. FINDINGS: Sonographic imaging demonstrates a single living intrauterine gestation. The fetus demonstrates a regular cardiac rate of 132 beats per minute. Fetus has a vertex orientation. The amniotic fluid volume appears normal there is a single deepest pocket measurement of 5.3 cm. The fetus was active and demonstrated normal breathing movements. There was normal flexion and extension of the trunk and extremities. Procedure Note Mike Briones MD - 10/10/2024 For Patients: As a result of the Century Cures Act, medical imagingexams and procedure reports are released immediately into your electronicmedical record. You may view this report before your referring provider.If you have questions, please contact your health care provider. INDICATION: 39 year-old female. Advanced maternal age. Evaluate fetalwell-being. COMPARISON: October 04, 2024. TECHNIQUE: Real-time richard scale imaging of the fetus was performed. FINDINGS: Sonographic imaging demonstrates a single living intrauterine gestation.The fetus demonstrates a regular cardiac rate of 132 beats per minute. Fetus has a vertex orientation. The amniotic fluid volume appears normalthere is a single deepest pocket measurement of 5.3 cm. The fetus was active and demonstrated normal breathing movements. Therewas normal flexion and extension of the trunk and extremities. IMPRESSION: Normal biophysical profile score of 8/8. Dictated by Mike Briones MD @ 10/10/2024 12:54:08 PM (Electronically Signed) [facility] Rosenthal US Final Resu lt * (ABNORMAL) HEMOGLOBIN (09/27/2024 7:59 AM MUSICIAN INSTRUMENTAL) Only the most recent of2 resultswithin the time period is included. HEMOGLOBIN 11.2(L) 11.7 - 15.5 g/dL [facility] jos Tracy Blood BLOOD SPECIMEN / Unknown 09/27/2024 7:59 AM MUSICIAN INSTRUMENTAL 09/27/2024 8:00 AM MUSICIAN INSTRUMENTAL Tong Rosenthal HEMATOLOGY Final Resu lt [facility] [address] [place] [address], [facility] [address] [place] [address] * Growth Follow Up Any Trimester (CPT 27648) If BPP w/NST needed use Testing section for order (09/14/2024 2:51 PM MUSICIAN INSTRUMENTAL) Only the most recent of2 resultswithin the time period is included. Anatomical Region Laterality Modality , 2or 3 TRIMESTER Ultrasound 09/14/2024 2:38 PM MUSICIAN INSTRUMENTAL Narrative 09/14/2024 3:43 PM MUSICIAN INSTRUMENTAL Referred By: TONG ROSENTHAL DO INDICATIONS Maternal age of 39 at delivery Low risk NIPS Intrauterine at 34w 1d. presentation is Cephalic. EFW 2790 grams, percentile: 87. Deepest Vertical Pocket of amniotic fluid: 6.92 cm. No major anomalies identified on limited survey. Appropriate symmetric growth. Placental location: Anterior, right lateral. There is no evidence of placenta previa. The transabdominal cervical length is not seen BPP 08/18 RECOMMENDATIONS Return to primary OB provider for continued care. Continue weekly BPP Deliver at 39 weeks COMMENT The patient was seen by the Perinatologist today. The previous ultrasound and the records were reviewed. The results of today's ultrasound were communicated to the patient. New government regulations related to the Cures act require that this note be released to the patient immediately, sometimes before the referring provider has been contacted. A portion of the information was presented verbally to the patient. The remainder is submitted as background for the referring provider, to be discussed as needed. Medical Decision Making Low Complexity 10963 Limited Diagnoses including AMA with maternal age of 39 at delivery Limited Data including review of prior ultrasound and review of prior external notes Minimal risk of morbidity or mortality to the fetus from additional testing. Services Provided Procedures Code FOLLOW UP GROWTH, BPP/NST 58662.0, 30929.0 Procedure Note Rashaad Tavares MD - 09/14/2024 Referred By: TONG ROSENTHAL DO INDICATIONS Maternal age of 39 at delivery Low risk NIPS Intrauterine at 34w 1d. presentation is Cephalic. EFW 2790 grams, percentile: 87. Deepest Vertical Pocket of amniotic fluid: 6.92 cm. No major anomalies identified on limited survey. Appropriate symmetric growth. Placental location: Anterior, right lateral. There is no evidence of placenta previa. The transabdominal cervical length is not seen BPP 08/18 RECOMMENDATIONS Return to primary OB provider for continued care. Continue weekly BPP Deliver at 39 weeks COMMENT The patient was seen by the Perinatologist today. The previous ultrasoundand the records were reviewed. The results of today's ultrasound werecommunicated to the patient. New government regulations related to the Cures act requirethat this note be released to the patient immediately, sometimes before the referringprovider has been contacted. A portion of the information was presented verbally to thepatient. The remainder is submitted as background for the referring provider, to be discussed asneeded. Medical Decision Making Low Complexity 40957 Limited Diagnoses including AMA with maternal age of 39 atdelivery Limited Data including review of prior ultrasound and review of priorexternal notes Minimal risk of morbidity or mortality to the fetus from additionaltesting. Services Provided ProceduresCode FOLLOW UP GROWTH, BPP/EIK67776.0, 24774.0 Lars Vargas DO US Hanh l Result * VAGINAL/RECTAL OB STREP PCR (09/13/2024 4:37 PM MUSICIAN INSTRUMENTAL) Vaginal/Rectal OB Strep B PCR Negative 09/15/2024 9:30 AM MUSICIAN INSTRUMENTAL [facility] Other (Vaginal/Rectal) Non-Blood / Unknown 09/13/2024 4:37 PM MUSICIAN INSTRUMENTAL 09/13/2024 4:37 PM MUSICIAN INSTRUMENTAL Tong Rosenthal DO MICROBIOLOGY Final Resu lt [facility] [address] [place] [address], * TREPONEMA PALLIDUM (08/05/2024 9:59 AM CDT) T. PALLIDUM AB NEGATIVE NEGATIVE [facility] Tracy Comment: No antibodies to T. pallidum (the agent causing syphilis) were detected in the specimen. This result, however, does not exclude very recent T. pallidum infection; testing of a second specimen, collected 2-4 weeks after this specimen, is recommended if the index of suspicion for recent infection is high. Blood BLOOD SPECIMEN / Unknown 08/05/2024 9:59 AM CDT 08/05/2024 10:00 AM CDT Tong Rosenthal DO SEND OUTS Final Resu lt Performing Organization Address City/[facility]/ZIP Co de Phone Number [facility] [address] [place] [address], [place] [phone] [facility] [address] [facility] [place] [address] * GLUCOSE,GESTATIONAL (08/05/2024 9:59 AM CDT) GLUCOSE, GESTATIONAL SCREEN (50G)-140 CUTOFF 124 <140 mg/dL [facility] jos Tracy Blood BLOOD SPECIMEN / Unknown 08/05/2024 9:59 AM CDT 08/05/2024 10:00 AM CDT Tong Rosenthal DO CHEMISTRY Final Resu lt Performing Organization Address [facility] de Phone Number [facility] [address] [address], [place] [phone] [facility] [address] [place] [address] * ANTI HIV 1/2 (03/15/2024 2:58 PM CDT) Pathologist [facility] HIV-1/HIV-2 SCREEN Non-Reacti ve Non-Reacti ve 03/16/2024 1:24 AM CDT [facility] Comment:HIV-1 p24 and HIV-1/ HIV-2 Ab Not Detected. Blood BLOOD SPECIMEN / Unknown Venipuncture / Unknown 03/15/2024 2:58 PM CDT 03/15/2024 2:59 PM CDT Tong Rosenthal DO SEND OUTS Final Resu lt Performing Organization Address City/[facility]/ZIP Co de Phone Number [facility] [address] [place] [address], [place] * ANTI HCV (10/19/2023 9:52 AM MUSICIAN INSTRUMENTAL) HEPATITIS C ANTIBODY Non-Reacti ve Non-React maryam 10/19/2023 5:04 PM MUSICIAN INSTRUMENTAL [facility] Comment:Please note, per www .CDC.gov: If a patient is known to be at high risk of HCV infection, or is symptomatic, and the physician's suspicion of HCV infection is high, HCV RNA testing is often employed and is of diagnostic value, even after an initial negative anti-HCV test result. Blood BLOOD SPECIMEN / Unknown Venipuncture / Unknown 10/19/2023 9:52 AM MUSICIAN INSTRUMENTAL 10/19/2023 9:54 AM MUSICIAN INSTRUMENTAL Tong Rosenthal DO SEND OUTS Final Resu lt Performing Organization Address City/[facility]/ZIP Co de Phone Number [facility] [address] [place] [address], [place] * HPV HIGH RISK (02/03/2022 9:11 AM CDT) TYPE 16 Negative Negative 02/05/2022 5:37 PM CDT [facility] TYPE 18 Negative Negative 02/05/2022 5:37 PM CDT [facility] OTHER HIGH RISK TYPES Negative Negative 02/05/2022 5:37 PM CDT [facility] Other (Cervical) Non-Blood / Unknown 02/03/2022 9:11 AM CDT 02/04/2022 8:[address] [facility] - 02/05/2022 5:37 PM CDT HPV types 16, 18, 31, 33, 35, 39, 45, 51, 52, 56, 58, 59, 66 and 68 DNA were undetectable or below the pre-set threshold. Methodology: [employer] Yazmin 4800 HPV Test Tong Rosenthal DO MICROBIOLOGY Final Resu lt [facility] [address] [place] [address], [place] from Last 3 Months or Most Recently Relevant to Health Maintenance Insurance [facility] Care Teams Patient Scheduling Manager Relationship Specialty Start Date End Date Tong Rosenthal DO [address] [place] [address] PCP - General Family Practice 06/30/16 Gaston Shipman MD RECEIVING INSPECTOR Obstetrics and Gynecology 07/03/11
[2024-10-18 06:56] LABS: Basophils Absolute Auto 0.02 K/uL (0.00-0.30); Basophils Percent Auto 0.3 % (0.0-3.0); Eosinophils Absolute Auto 0.08 K/uL (0.00-0.50); Hematocrit 36.5 % (33.0-51.0); Immature Granulocytes Abs Auto 0.02 K/uL (0.00-0.30); Immature Granulocytes Pct Auto 0.3 %; Lymphocytes Percent Auto 29.9 % (20-44); Mean Corpuscular HGB Conc 33 gm/dL (32-36); Mean Corpuscular Hemoglobin 32 pg (26-34); Mean Corpuscular Volume 97 fL (80-100); Monocytes Percent Auto 6.9 % (0.0-11.0); Neutrophils Absolute Auto 4.74 K/uL (1.7-7.0); Neutrophils Percent Auto 61.6 % (42.0-72.0); Platelet Count* 143 K/uL (140-440); RDW Coefficient of Variation % 15.3 % (11.5-15.5); Red Blood Count 3.77 m/uL (4.00-5.20); White Blood Count* 7.69 K/uL (4.50-11.00)
[2024-10-18 07:05] LABS: Slide Review Reflex No
[2024-10-18] MEDS: OXYTOCIN 30 unit/500 ML in NS 30 UNIT/500 ML BAG IVPB (07:35)
[2024-10-18] MEDS: LACTATED RINGERS 1000 ML 1,000 ML 125 ML IV (07:35)
--- NOTE | 2024-10-18 12:29 | PM.OBHPLI ---
OB - H&P: HPI Labor/Induction History of Present Illness Time Seen by Provider: 12:15 Date Seen: 10/18/24 Chief Complaint: The patient is a 39 year old 4 para 2 at 39 weeks gestation by LMP c/w 1st trimester US, who presents to L&D for induction due to AMA. Chief complaint: Maternity : 4 Para: 2 Date of last menstrual period: 01/19/24 Estimated date of delivery: 10/25/24 Gestational age based on last menstrual period: 39 Indications for induction: other (AMA) Narrative: Tamra Glynn is a 39 year old 4 para 2 at 39 weeks gestation by LMP c/w 1st trimester US, who presents to L&D for induction due to AMA. She has been having occasional contractions for the last 1-2 weeks, nothing regular or persistent. No abdominal pain. No bleeding. +FM. Did have intermittent dull headache last week, thought from mild sinus URI she says, resolved now. no current cough or cold sxs. complicated by AMA: had negative radha, level 2US, serial growth US's, weekly BPP's. Last growth US with EFW 87% at 34wks 08/02/2024 US did show suspected succenturiate lobe with perinatology noting need to ensure complete delivery of placenta at delivery She does have hx genital herpes, no recent outbreaks or lesions. Is on valacyclovir for prophylaxis History of Present Dating criteria: based on LMP care: good care Abnormal ultrasound findings: see above in HPI Labs Blood type: B (+) positive Rubella: immune RPR/VDLR: nonreactive GBS status: negative HBsAG: negative Meds Home Medications and Allergies Home Medications ?Medication ?Instructions ?Recorded ?Confirmed ?Type docosahexaenoic acid 200 mg mg PO 10/18/24 History capsule ( DHA) ferrous sulfate 325 mg (65 mg 325 mg PO DAILY 10/18/24 10/18/24 History iron) tablet (iron) valacyclovir 500 mg tablet 500 mg PO DAILY 10/18/24 10/18/24 History (Valtrex) Allergies Allergy/AdvReac Type Severity Reaction Status Date / Time No Known Drug Allergies Allergy Verified 10/18/24 08:30 OB - H&P: Exam Physical Exam: Vital signs: Temp Pulse BP Pulse Ox 98.2 F 93 116/76 90 10/18/24 11:40 10/18/24 11:40 10/18/24 11:40 10/18/24 11:40 Constitutional: Constitutional: no acute distress and cooperative Routine HEENT Exam: Head: Present normal inspection Eye: Present normal appearance ENT: Present mucous membranes moist Routine Respiratory Exam: Respiratory: Present CTA bilaterally Routine Cardiovascular Exam: Cardiovascular: RRR Detailed Labor and Delivery Exam: Patient Gravid: Yes Dilation (cm): 4 Effacement (%): 90 Cervix position: posterior Consistency: soft Contraction frequency (min): 2 Fetus (Single): Station: 0 Amniotic Membrane Status: AROM Amniotic Membrane Fluid Description: Clear Heart Rate Baseline: 130 Monitor Accelerations: Present Monitor Decelerations: None Residential Variability: Moderate (6-25) Routine Extremities Exam: Extremities: Absent pedal edema Routine Psychiatric Exam: Present normal affect, cooperative and good judgment OB - Results Labs Labs: Short CBC 10/18/24 Range/Units Unknown WBC 7.69 (4.50-11.00) K/uL Hgb 12.0 (12.0-16.0) gm/dL Hct 36.5 (33.0-51.0) % Plt Count 143 (140-440) K/uL OB - Problem Based A/P Additional Plan (1) Advanced maternal age (AMA) in : Status: Acute (2) Term : Status: Acute Plan Induction started this morning with pitocin procotol AROM performed now after pt consent with clear fluid. Known GBS negative Delivery/Labor/Induction Plan Plan: induction Induction method: AROM
[2024-10-18] MEDS: lidocaine HCL 2 % JELLY (TOP) STERILE 6 ML TOPICAL (13:52)
[2024-10-18] MEDS: LIDOCAINE 1 % PF 30 ML INJECTION (13:52)
--- NOTE | 2024-10-18 14:34 | W.PM.VAGDEL1 ---
Procedure Delivery date: 10/18/24 Procedure Done: Global Procedure Details: The patient is a 39 year-old admitted on 10/18/24 at 39 Weeks, 0 Days gestation for induction due to AMA.? Cervical exam on admission was 3 cm/80 % effaced/0 station with membranes intact in vertex presentation.? Contractions were occasional.? heart rate demonstrated baseline 140 bpm with moderate variability, + accelerations, - decelerations; a category 1 tracing. Pitocin was started per induction protocol. AROM occurred at 1223 with clear fluid. Pt was 4cm at time of AROM. She then progressed quickly and was complete by 1314. ? Labor Analgesia:? none ? Pitocin:? Yes ? Labor onset:? 1236 ? Complete:? 1314 ? Pushing:? 1316 ? heart tones during second stage were 100-110. ? At 1336 a viable female infant delivered in vertex presentation over intact perineum via spontaneous vaginal delivery.?There was a 20sec shoulder dystocia, abel performed and noted to have hand presentation next to face so arm was delivered baby delivered immediately with this maneuver. was placed on maternal abdomen.?Infant had spontaneous cry on delivery. No resucitation was needed. Cord was clamped and cut after a 60+ second delay.? Nose and mouth were bulb suctioned.? weight pending.? 8 at 1 minute and 9 at 5 minutes.? Shoulder dystocia: yes.? Nuchal cord: no. ? Placenta delivered spontaneously and complete at 1406 with a 3 vessel cord. Extra attention was paid to ensure placenta appeared intact with prior US with possible succenturiate lobe. Placenta appeared complete. ? Mother and infant were stable after delivery. ? Lacerations:? two small bilateral anterior labial lacerations, did not require repair. Left perineal 2nd degree laceration, repaired with 3-0 Vicryl. Right sided perineal 2nd degree laceration repaired with 2-0 vicryl. there was superficial abrasion extending posterior from this along perineum but was hemostatic and did not require further repair. Repairs were performed after lidocaine gel was applied and then area injected with 1% lidocaine. ? Blood loss: 350 mL. Blood loss measurement type: EBL ? Sponge and needles counts are correct. Infant Gender: Female total score - 1 minute: 8 total score - 5 minute: 9
[2024-10-18] MEDS: IBUPROFEN 600 MG TABLET PO ×2 (15:42→21:57)
[2024-10-18] MEDS: ACETAMINOPHEN 500 MG TABLET 1000 MG PO (18:14)
[2024-10-19] MEDS: ACETAMINOPHEN 500 MG TABLET 1000 MG PO ×2 (00:01→08:27)
[2024-10-19 00:05] VITALS: BP 118/77; PULSE 71; RESP 16; TEMP 36.7; O2SAT 97
[2024-10-19] MEDS: LANOLIN CREAM 1 APPLIC TOPICAL (00:22)
[2024-10-19] MEDS: IBUPROFEN 600 MG TABLET PO ×2 (05:17→14:00)
[2024-10-19 05:20] VITALS: BP 114/72; PULSE 88; RESP 16; TEMP 36.6; O2SAT 98
[2024-10-19 06:40] LABS: Hemoglobin* 10.4 gm/dL (12.0-16.0)
[2024-10-19 08:20] VITALS: BP 120/75; PULSE 84; RESP 16; TEMP 36.7; O2SAT 97
[2024-10-19] MEDS: DOCUSATE SODIUM 100 MG CAPSULE PO (08:28)
[2024-10-19 13:30] VITALS: BP 116/70; PULSE 78; RESP 16; TEMP 36.9; O2SAT 97
--- NOTE | 2024-10-19 13:33 | P.DS_ITS ---
DS: Providers Provider Date Seen: 10/19/24 Date of admission: 10/18/24 06:02 Primary care physician: Maliha Rosenthal DO Admitting Clinician: Maliha Rosenthal DO Attending Physician on discharge: Maliha Rosenthal DO DS: Diagnosis Discharge Diagnosis (1) Vaginal delivery: Status: Acute Problem details: at 39w, uncomplicated delivery. Exam Narrative: Exam Narrative: Gen: No acute distress Const: Vital Signs, click to edit/add: Vital Signs - 24 hr 10/18/24 13:43 10/18/24 13:48 10/18/24 13:58 Temperature 98.4 F Pulse Rate 82 86 Pulse Rate [Right Radial] Respiratory Rate Blood Pressure 134/59 L 125/76 Blood Pressure [Ri ght Arm] Pulse Oximetry Oxygen Delivery Me thod 10/18/24 14:13 10/18/24 14:13 10/18/24 14:28 Temperature 98.4 F Pulse Rate 83 90 Pulse Rate [Right Radial] Respiratory Rate 18 Blood Pressure 117/67 133/77 Blood Pressure [Ri ght Arm] Pulse Oximetry Oxygen Delivery Me thod 10/18/24 14:43 10/18/24 14:43 10/18/24 14:58 Temperature 98.2 F Pulse Rate 74 78 Pulse Rate [Right Radial] Respiratory Rate Blood Pressure 127/77 132/81 Blood Pressure [Ri ght Arm] Pulse Oximetry Oxygen Delivery Me thod 10/18/24 15:13 10/18/24 15:13 10/18/24 15:16 Temperature 98.0 F Pulse Rate 44 L Pulse Rate [Right Radial] 65 Respiratory Rate Blood Pressure 135/78 Blood Pressure [Ri ght Arm] Pulse Oximetry 97 Oxygen Delivery Me thod 10/18/24 15:22 10/18/24 15:28 10/18/24 15:28 Temperature Pulse Rate 45 L Pulse Rate [Right Radial] 80 Respiratory Rate Blood Pressure 143/61 H Blood Pressure [Ri ght Arm] Pulse Oximetry 98 Oxygen Delivery Me thod 10/18/24 15:43 10/18/24 15:58 10/18/24 15:58 Temperature 98.4 F Pulse Rate 95 100 Pulse Rate [Right Radial] Respiratory Rate Blood Pressure 126/83 112/74 Blood Pressure [Ri ght Arm] Pulse Oximetry Oxygen Delivery Me thod 10/18/24 21:10 10/19/24 00:05 10/19/24 05:20 Temperature 97.8 F 98.0 F 97.8 F Pulse Rate Pulse Rate [Right Radial] 75 71 88 Respiratory Rate 16 16 16 Blood Pressure Blood Pressure [Ri ght Arm] 118/75 118/77 114/72 Pulse Oximetry 97 97 98 Oxygen Delivery Me thod Room Air Room Air Room Air 10/19/24 08:20 Temperature 98.0 F Pulse Rate Pulse Rate [Right Radial] 84 Respiratory Rate 16 Blood Pressure Blood Pressure [Ri ght Arm] 120/75 Pulse Oximetry 97 Oxygen Delivery Me thod Room Air OB - DS: Summary Hospital Course Hospital Course: The patient is a 39 year old G 4 P 3 at 39 weeks gestation that was admitted to the Center on 10/18/24 for IOL for AMA. She had an uncomplicated vaginal delivery. She delivered a viable female . She is exclusively pumping breast feeding. Labial and perineal lacerations. the patient has done well. No concerns. [place] Gender: Female Status at Discharge Functional status at discharge: independent ambulation Overall status at discharge: patient is progressing back to baseline Time Spent with Patient Time attestation: Total time spent providing and/or coordinating discharge services: Discharge Plan Discharge Disposition: Home, Self-Care Date of Admission: 10/18/24 06:02 Primary Care Provider: Maliha Rosenthal Condition: Stable Anticipated Discharge Date/Time: 10/19/24 13:33 Discharge Medications: Continued DHA 200 mg capsule PO valacyclovir [Valtrex] 500 mg tablet 500 mg PO DAILY ferrous sulfate [iron] 325 mg (65 mg iron) tablet 325 mg PO DAILY Discharge Orders: Discharge Order (Routine); Ordered 10/19/24 Ordered By: Rosemarie Swann Patient Education: OB [place] Care, OB Vaginal/Breast Feeding Activity Level: Activity as Tolerated Discharge Diet: Regular Follow Up Appointments: Maliha Rosenthal DO [Primary Care Provider] - Forms: MyHealth Info Instructions DS:Data Additional Comments Additional comments: - Pelvic rest for 6 weeks (no intercourse, tampons or douching), or until one week after vaginal bleeding stops. - Daily activities for the first week should be limited to taking care of patient and her baby, and only as tolerated. - Call MD if fever > 100.4 degrees, bleeding more than 1 pad / hour, foul- smelling discharge, passage of golf-ball sized blood clots, or worsening of pain not controlled by medications. - Counseled on signs of post- depression
[2024-10-20 02:02] LABS: Rapid Plasma Reagin (RPR) Non Reactive (Non Reactive)
== END 2024-10-19 15:30 | disposition home or self-care (01) | DRG 560 ==
PROVIDERS: Admitting Provider Family Medicine; PCP Family Medicine; Visit Provider Family Medicine
DX: O66.0 Obstructed labor due to shoulder dystocia (principal); O98.32 Other infections with a predominantly sexual mode of transmission complicating childbirth; A60.00 Herpesviral infection of urogenital system, unspecified; O70.1 Second degree perineal laceration during delivery; Z3A.39 39 weeks gestation of pregnancy; Z37.0 Single live birth
CPT/HCPCS: 36415; 85018; 85025; 86592; 86850; 86900; 86901; A9270; J2003; J2371; J7120

== ENCOUNTER 2024-11-30 08:32 | Outpatient (CLI) | payer BC, SELFPAY ==
--- NOTE | 2024-11-30 14:41 | W.PM.LAC.MC ---
Consult Note - Mom Date of Visit Date of visit: 11/30/24 Reason for consultation: Assistance Needed, Low Milk Supply and Other (painful pumping) Visit Code: Visit Patient's Information Phone number: [phone] : 4 Para: 3 Allergies No Known Drug Allergies Allergy (Verified 10/18/24 08:30) Work Plans: returns to work on January 10 Delivery Information Delivery type: Vaginal Gestational Weight For Age: AGA Baby's Information Medications: Taking Grayson Lecithin for clogged ducts, 3-4x/day when clog shows up. Once a day once the clog passes. Baby's Age at Visit: 6 weeks Past Experience Past Experience: Yes (pumped and bottled her 2nd child for 5 mos and was an overproducer) Pumping Pumping: Yes (exclusivly pumping every 2-3 hours for 20 minutes) Quantity Pumped: gets 2-3 oz most pumps, gets about 5 oz with AM power pump Supplementing EBM Supplement: Yes Formula Supplement: Yes Breast/Nipple Condition Breast Information: Breasts are symmetrical with rounded lower quadrants, intramammary distance is less than 1.5 inches. No erythema. Some firm rope like area noted under her right breast. Nipples are supple, everted prior to feeding. When mom removes bra to measure for flange size, she is dripping milk. Juncture of nipples to breast at areola is reddened and with a slight white coating at the base of the nipple. Mom says it has been this way for weeks. Breast Shape: Round Engorgement: No Interventions for Engorgement: Warm Pack Maternal Nipple Condition - Left: Common Nipple Maternal Nipple Condition - Right: Common Nipple Sore Nipples: Yes Interventions for Sore Nipples: Lansinoh/Nipple Cream Assessments/Interventions Assessments/Interventions: Mom not , exclusively pumping. Brought her Spectra pump with her to view pumping session for comprehensive understanding. Using a 24 mm flange size bilaterally (right nipple is 19mm, left nipple is 20mm) She uses the massage mode for 5 minutes at cycle 70, then switches to the expression mode at cycle 54 at L2 for suction. She reports she can sometimes go to L3 but that is often painful. Occas has used L4, but never higher as it is too painful. PLAN Spectra pump settings reviewed Nipple pain APNO (hydrocortisone, clotrimazole, bacitracin and neosporin. Equal amounts mixed together) cream to nipples after each pumping for 2-3 weeks; gentle cleansing of nipple area once a day to clean away film to allow medications to work Breast shells to allow air flow to nipples to help heal and reduce trapped moisture. Hopeful that healing nipples will allow her to pump at a higher setting to retrieve more milk and reduce clogged ducts Discussed pumping every 3 hours daytime and 4 hours at night since nipples are sore. Want to remove milk frequently but also not irritate nipples more. Track 24 hour volumes of milk as this is more important than each individual pumping. Milk supply Discussed galactogogues to increase supply; Mother's Milk Tea or Morings or More Milk Plus - pros and cons discussed; mom may try once nipples are feeling better. Plugged ducts continue with sunflower lecithin 1 tab 3-4 times/day when flared up; when no clogs, use 1 tab BID until 1 month without a plugged duct. Flange size Continue with 24 mm right now, may try 22 mm in the future but want to try and calm irritation to nipples first; may not need different size. Education provided: Supply/demand nature of milk supply, Sore nipple treatment options and Pumping for milk management Handouts Provided: Spectra - how to pump more milk for settings Follow-Up Suggested follow up: Appointment as needed Time Spent Time spent with patient (min): 45 Meds Home Medications and Allergies Home Medications ?Medication ?Instructions ?Recorded ?Confirmed ?Type docosahexaenoic acid 200 mg mg PO 10/18/24 History capsule ( DHA) ferrous sulfate 325 mg (65 mg 325 mg PO DAILY 10/18/24 10/18/24 History iron) tablet (iron) valacyclovir 500 mg tablet 500 mg PO DAILY 10/18/24 10/18/24 History (Valtrex) Allergies Allergy/AdvReac Type Severity Reaction Status Date / Time No Known Drug Allergies Allergy Verified 10/18/24 08:30
== END 2024-11-30 08:33 | disposition home or self-care (01) ==
PROVIDERS: PCP Family Medicine; Visit Provider Obstetrics & Gynecology
DX: Z39.1 Encounter for care and examination of lactating mother (principal)
CPT/HCPCS: G0463

== ENCOUNTER 2025-05-05 14:00 | Outpatient (RCR) | payer BC, SELFPAY | END 2025-09-02 23:59 | disposition home or self-care (01) | PROVIDERS: PCP Family Medicine; Visit Provider Family Medicine | DX: M62.89 Other specified disorders of muscle (principal); K59.00 Constipation, unspecified; R27.8 Other lack of coordination; N39.3 Stress incontinence (female) (male); R33.9 Retention of urine, unspecified; N94.10 Unspecified dyspareunia; Z51.89 Encounter for other specified aftercare | CPT/HCPCS: 97110; 97140; 97162; 97535 ==